=== PATIENT | female | born 1980 | race Caucasian/White ===

== ENCOUNTER → 2020-01-03 | Outpatient (CLI) | payer SELFPAY ==
[~2020-01-03] MED LIST: B COMPLEX1 EAC1 PO; CLARITIN10 MG PO; FLEXERIL10 MG PO; FLOVENT HFA12 GM IH; MAGNESIUM ELEME30 MG PO; MULTI VITAMINS1 TAB PO; TRIMOX500 MG PO; VENTOLIN H0.09 MG/AC INH
== END | disposition home or self-care (01) ==
LOC: COVID19 03:10
PROVIDERS: ATTEND Family Medicine
DX: Z11.59 Encounter for screening for other viral diseases (principal)